=== PATIENT | female | born 1970 | race Caucasian/White ===

== ENCOUNTER 2019-06-13 07:14 | Outpatient (CLI) | payer OTHER, SELFPAY ==
--- NOTE | ~2019-06-13 | NM_ITS ---
EXAM: NM gastric emptying study DATE: 06/13/2019 12:37 INDICATION: Nausea and vomiting. TECHNIQUE: A gastric emptying study was performed using the methodology of Kaylee CANCHOLA, et al. J Nucl Med 2007; 48:568-572. The patient was given a meal consisting of 2 scrambled eggs labeled with 1 mCi Tc-99m sulfur colloid, 2 slices of toast, two packages of jam, and approximately 120 mL of water. Si multaneous anterior and posterior 1-min images of the abdomen were obtained with the patient supine a t multiple time points over a total period of 4 hours. The geometric mean of anterior and posterior v iews was determined, and the percentage retention was calculated for each time point. COMPARISON: None. FINDINGS: Gastric retention of the radiotracer-labeled meal was 73%, 47%, and 21% at the 1-hour, 2-h our, and 4-hour time points, respectively. With this technique, apparent rapid gastric emptying is nicholas ggested by <30% gastric retention at 1 hour. Delayed gastric emptying is defined by gastric retention of >90% at 1 hour, >60% retention at 2 hours, or >10% retention at 4 hours. IMPRESSION: 1. Delayed gastric emptying. Reviewed, dictated and finalized at location A. [employer]
== END 2019-06-13 07:15 | disposition home or self-care (01) ==
PROVIDERS: PCP Family Medicine Sports Medicine; Visit Provider Internal Medicine Gastroenterology
DX: R11.2 Nausea with vomiting, unspecified (principal); R10.13 Epigastric pain; K30 Functional dyspepsia
CPT/HCPCS: 78264; A9541

== ENCOUNTER 2019-06-25 00:29 | Day surgery (SDC) | payer OTHER, SELFPAY ==
[2019-06-18 14:43] VITALS: BMI 31.0
[2019-06-25 06:45] VITALS: BP 144/78; PULSE 77; RESP 20; TEMP 36.8; O2SAT 97; BMI 31.9
[2019-06-25] MEDS: LACTATED RINGERS 1,000 ML 150 ML IV CONT (06:54)
--- NOTE | 2019-06-25 07:05 | WPDANESEPPF ---
Anes - Initial Pre Proc Eval Procedure: Operation Date: 06/25/19 07:30 Proposed Procedures p Esophagogastroduodenoscopy - Vasu Andrews MD Date/Time: 06/25/19 07:05 Surgeon: Vasu Andrews MD Pre Op Diagnosis: GERD Patient Data Age: 49 Gender: F Height: 5 ft 2 in Weight: 79.2 kg Last Vital Signs Temp 36.8 C 06/25/19 06:45 Pulse 77 06/25/19 06:45 Resp 20 06/25/19 06:45 BP 144/78 H 06/25/19 06:45 Pulse Ox 97 06/25/19 06:45 Allergies Allergy/AdvReac Type Severity Reaction Status Date / Time Sulfa (Sulfonamide Allergy Rash Verified 06/25/19 06:44 Antibiotics) Home Medications Medication Instructions Recorded Confirmed Type albuterol sulfate 90 mcg/actuation 1 puff INHALATION Q4H PRN 06/05/19 06/18/19 History aerosol inhaler esomeprazole magnesium 20 mg 20 mg PO BID #60 cap 06/05/19 06/18/19 Rx capsule,delayed release fluticasone propionate 45 2 puff INHALATION BID 06/05/19 06/18/19 History mcg-salmeterol 21 mcg/actuation HFA inhaler Patient hx anesthesia problems: none Family hx anesthesia problems: none [facility] Past Medical History Medical History Salgado esophagus Colon cancer screening GERD (gastroesophageal reflux disease) Nausea & vomiting Social History Social History Smoking status: Former smoker Alcohol intake: never Anes - Eval Final PreProcedure Day of Procedure 06/25/19 07:05 Patient weight: obese Heart: regular rate and rhythm Lungs: clear to auscultation Airway: Mallampati scale class II Neurological: alert and oriented Last oral intake: >/= 8 hours ASA classification: II Emergent: no Anesthetic plan: proceed Anesthesia type and monitoring: general GIVS and standard monitoring Informed Consent: The patient's anesthetic plan and its attendant risks and benefits were discussed with the patient/family/POA. Questions were solicited and answers provided to the satisfaction of the patient/family/POA.
--- NOTE | 2019-06-25 07:33 | WPDHPUPDATE1 ---
History and Physical Update Update Date/Time: 06/25/19 07:33 History and Physical has been reviewed, including an updated exam of the patient. There are NO changes in the patient's condition. Risks, benefits, and alternatives have been discussed and questions answered. Patient agrees to proceed with procedure.
[2019-06-25 07:49] VITALS: BP 101/63; PULSE 85; RESP 19; O2SAT 100
[2019-06-25 07:59] VITALS: BP 92/75; PULSE 69; RESP 17; O2SAT 98
[2019-06-25 08:09] VITALS: BP 106/80; PULSE 70; RESP 21; O2SAT 99
== END 2019-06-25 08:15 | disposition home or self-care (01) ==
PROVIDERS: PCP Family Medicine Sports Medicine; Visit Provider Internal Medicine Gastroenterology
PROC: 0DJ08ZZ Inspection of Upper Intestinal Tract, Via Natural or Artificial Opening Endoscopic (ICD-10-PCS; CPT 43235; principal; 2019-06-25 07:30)
DX: K21.0 Gastro-esophageal reflux disease with esophagitis (principal); K29.50 Unspecified chronic gastritis without bleeding; Z87.19 Personal history of other diseases of the digestive system; Z87.891 Personal history of nicotine dependence; E66.9 Obesity, unspecified; Z68.31 Body mass index [BMI] 31.0-31.9, adult
CPT/HCPCS: 43239; 88305; 88313; 88342; J2704; J7120

== ENCOUNTER 2019-08-15 12:54 | Outpatient (NON) | payer OTHER, SELFPAY ==
[2019-08-16 13:31] LABS: SARS-CoV-2 RNA PCR Negative
== END 2019-08-15 12:55 ==
PROVIDERS: PCP Family Medicine Sports Medicine; Visit Provider Family Medicine Sports Medicine
DX: J45.901 Unspecified asthma with (acute) exacerbation (principal); R06.02 Shortness of breath; Z20.828 Contact with and (suspected) exposure to other viral communicable diseases
CPT/HCPCS: 87635; U0003

== ENCOUNTER 2019-09-24 08:29 | Outpatient (CLI) | payer OTHER, SELFPAY ==
[2019-09-26 21:23] LABS: H pylori Ag Stool Not Detected (Not Detected)
== END 2019-09-24 08:30 | disposition home or self-care (01) ==
PROVIDERS: PCP Family Medicine Sports Medicine; Visit Provider Internal Medicine Gastroenterology
DX: K29.70 Gastritis, unspecified, without bleeding (principal); B96.81 Helicobacter pylori [H. pylori] as the cause of diseases classified elsewhere
CPT/HCPCS: 87338

== ENCOUNTER 2021-10-29 00:26 | Day surgery (SDC) | payer OTHER, SELFPAY ==
[2021-10-14 14:43] VITALS: BMI 30.8
[2021-10-29 08:49] VITALS: BP 146/71; PULSE 59; RESP 17; TEMP 36.5; O2SAT 99; BMI 31.3
[2021-10-29] MEDS: LACTATED RINGERS 1,000 ML 150 ML IV CONT (08:58)
--- NOTE | 2021-10-29 08:58 | WPDANESEPPF ---
Anes - Initial Pre Proc Eval Procedure: Operation Date: 10/29/21 10:00 Proposed Procedures p Esophagogastroduodenoscopy - Vasu Andrews MD Date/Time: 10/29/21 08:58 Surgeon: Vasu Andrews MD Pre Op Diagnosis: leggett's esophagus Patient Data Age: 51 Gender: F Height: 1.57 m Weight: 77.7 kg Last Vital Signs Temp 97.7 F 10/29/21 08:49 Pulse 59 L 10/29/21 08:49 Resp 17 10/29/21 08:49 BP 146/71 H 10/29/21 08:49 Pulse Ox 99 10/29/21 08:49 O2 Del Method Room Air 10/29/21 08:49 Allergies Allergy/AdvReac Type Severity Reaction Status Date / Time erythromycin base Allergy Severe Difficulty Verified 10/29/21 08:48 Breathing Sulfa (Sulfonamide Allergy Rash Verified 10/29/21 08:48 Antibiotics) Home Medications Medication Instructions Recorded Confirmed Type albuterol sulfate 90 mcg/actuation 1 puff inhalation Q4H PRN 06/05/19 10/29/21 History aerosol inhaler (ProAir HFA) Shortness Of Breath fluticasone propionate 45 2 puff inhalation BID 06/05/19 10/29/21 History mcg-salmeterol 21 mcg/actuation HFA inhaler (Advair HFA) esomeprazole magnesium 20 mg 20 mg PO BID #180 caps 11/30/20 10/29/21 Rx capsule,delayed release Patient hx anesthesia problems: none Family hx anesthesia problems: none Results Review: All pre-operative results and documents have been reviewed as part of the pre-operative evaluation. [facility] Past Medical History Medical History (System 06/11/21 @ 11:55 by Myla Sifuentes) Leggett esophagus Colon cancer screening Gastroparesis GERD (gastroesophageal reflux disease) Helicobacter positive gastritis Hiatal hernia Nausea Nausea & vomiting URI (upper respiratory infection) Social History Social History (System 06/11/21 @ 11:55 by Myla Sifuentes) Smoking status: Current every day smoker Additional smoking assessment comments: Uses a Pinch hitter for the marijuana Alcohol intake: never Substance use: current Substance use type: marijuana Other substance usage details: Edibles Last use: 10/14/21 Living arrangements: alone Spiritual care concerns: No Anes - Eval Final PreProcedure Day of Procedure 10/29/21 08:58 Patient weight: obese Airway: Mallampati scale class II ASA classification: III Results Review: All pre-operative results and documents have been reviewed as part of the pre-operative evaluation. Informed Consent: The patient's anesthetic plan and its attendant risks and benefits were discussed with the patient/family/POA. Questions were solicited and answers provided to the satisfaction of the patient/family/POA.
--- NOTE | 2021-10-29 09:10 | PM.HPGS ---
History of Present Illness History of Present Illness Consent: Risks, benefits, and alternatives have been discussed and questions answered. Patient agrees to proceed with procedure. Chief complaint: leggett's esophagus Narrative: Suzi Aguirre is a 51 year old female with gastroparesis controlled after she got gastric stimulator. Last EGD showed short segment Leggett's esophagus doing well on omeprazole daily. Review of Systems Constitutional: Constitutional: Denies headache(s) and Denies weakness Eyes: Eyes: Denies blurry vision ENT: Reports Normal hearing present, Denies headache(s) and Denies neck pain Cardiovascular: Cardiovascular: Denies chest pain and Denies dyspnea Respiratory: Respiratory: Denies dyspnea Gastrointestinal: Gastrointestinal: Reports no additional gastrointestinal complaints Genitourinary: Genitourinary: Denies dysuria Musculoskeletal: Musculoskeletal: Denies neck pain Integumentary/Breasts: Skin/Breast: Denies dry skin Neurologic: Reports Normal hearing present, Denies headache(s) and Denies weakness Psychiatric: Psychiatric: Denies anxiety Endocrine: Endocrine: Denies change in body appearance Hematologic/Lymphatic: Hematologic/Lymphatic: Denies easy bleeding Allergic/Immunologic: Allergic/Immunologic: Denies urticaria PMFSH Past Medical History Medical History (System 06/11/21 @ 11:55 by Myla Sifuentes) Leggett esophagus Colon cancer screening Gastroparesis GERD (gastroesophageal reflux disease) Helicobacter positive gastritis Hiatal hernia Nausea Nausea & vomiting URI (upper respiratory infection) Social History Social History (System 06/11/21 @ 11:55 by Myla Sifuentes) Smoking status: Current every day smoker Additional smoking assessment comments: Uses a Pinch hitter for the marijuana Alcohol intake: never Substance use: current Substance use type: marijuana Other substance usage details: Edibles Last use: 10/14/21 Living arrangements: alone Spiritual care concerns: No Meds Home Medications and Allergies Home Medications Medication Instructions Recorded Confirmed Type albuterol sulfate 90 mcg/actuation 1 puff inhalation Q4H PRN 06/05/19 10/29/21 History aerosol inhaler (ProAir HFA) Shortness Of Breath fluticasone propionate 45 2 puff inhalation BID 06/05/19 10/29/21 History mcg-salmeterol 21 mcg/actuation HFA inhaler (Advair HFA) esomeprazole magnesium 20 mg 20 mg PO BID #180 caps 11/30/20 10/29/21 Rx capsule,delayed release Allergies Allergy/AdvReac Type Severity Reaction Status Date / Time erythromycin base Allergy Severe Difficulty Verified 10/29/21 08:48 Breathing Sulfa (Sulfonamide Allergy Rash Verified 10/29/21 08:48 Antibiotics) Vital Signs Vital Signs - 24 hr 10/29/21 08:49 Temperature 97.7 F Pulse Rate 59 L Respiratory Rate 17 Blood Pressure 146/71 H Pulse Oximetry 99 Oxygen Delivery Room Air Exam Const: General: comfortable and no acute distress HENMT: General nose exam: Normal nares present Eyes: General: appearance normal, both eyes and all related structures Neck: Neck: no JVD Resp: Auscultation: clear to auscultation bilaterally Cardio: Rate: regular rate Rhythm: regular rhythm GI: Inspection: non-distended GI Palp: Yes Soft to palpation Skin: General skin exam: normal color Neuro: General: gait normal Speech: normal speech Extrem: General: normal to inspection Psych: Mental Status: mental status grossly normal Assessment and Plan Assessment and plan (1) Leggett esophagus: Qualifiers: Leggett's esophagus type: without dysplasia Qualified Code(s): K22.70 - Leggett's esophagus without dysplasia Code(s): K22.70 - Leggett's esophagus without dysplasia Status: Acute Assessment and Plan: egd with bx doing well on ppi dailyl (2) Gastroparesis: Code(s): K31.84 - Gastroparesis Status: Acute
[2021-10-29 09:27] VITALS: BP 95/50; PULSE 76; RESP 23; O2SAT 97
[2021-10-29 09:37] VITALS: BP 95/55; PULSE 65; RESP 18; O2SAT 96
[2021-10-29 09:47] VITALS: BP 117/68; PULSE 62; RESP 14; O2SAT 99
== END 2021-10-29 09:52 | disposition home or self-care (01) ==
PROVIDERS: PCP Family Medicine Sports Medicine; Visit Provider Internal Medicine Gastroenterology
PROC: 0DJ08ZZ Inspection of Upper Intestinal Tract, Via Natural or Artificial Opening Endoscopic (ICD-10-PCS; CPT 43235; principal; 2021-10-29 10:00)
DX: K21.00 Gastro-esophageal reflux disease with esophagitis, without bleeding (principal); K22.70 Barrett's esophagus without dysplasia; K31.84 Gastroparesis; R11.2 Nausea with vomiting, unspecified; Z79.51 Long term (current) use of inhaled steroids; F17.210 Nicotine dependence, cigarettes, uncomplicated; F12.90 Cannabis use, unspecified, uncomplicated
CPT/HCPCS: 43239; 88305; J2001; J2704; J7120

== ENCOUNTER 2025-02-21 00:23 | Day surgery (SDC) | payer OTHER, SELFPAY ==
[2025-02-12 12:01] VITALS: BMI 30.2
--- OUTSIDE RECORDS SUMMARY | 2025-02-21 00:26 | XMS_ITS | Clinical Summary ---
Author Organization [facility] Address [address] [address] Phone Care Team Providers Care Insole Lip Turner Name Role Phone Bartolo Hillman MD Primary Care Provider [phone] Social History Tobacco Use Types Packs/Day Years Used Date Smoking Tobacco: Never Assessed Comments Unknown Sex and Gender Information Value Date Recorded Sex Assigned at Not on file Legal Sex Female 2:49 PM [employer] Gender Identity Not on file Sexual Orientation Not on file Plan of Treatment Health Maintenance Due Date Last Done Comments Hepatitis C Virus (HCV) Screening 1969 TdaP Immunization 1969 Hepatitis B Immunization (1 of 3 - 19+ 3-dose series) 1988 Pap Smear 1990 Cervical Cancer Screening (CCS) 1999 HPV/Cotest 1999 Cologuard 2014 Colonoscopy 2014 Colorectal Cancer Screening 2014 Immunochemical Fecal Occult Blood 2014 Pneumococcal Immunization (5 0+ years) (1 of 1 - PCV) 2019 Zoster Immunization (1 of 2) 2019 Influenza Immunization (#1) 2024 SARS-COV-2 Immunization ( - 2023- season) 2024 Respiratory Syncytial Virus (RSV) Immunization (Adult) (1 - 1-dose 75+ series) 2044 Human Papillomavirus (HPV) Immunization Aged Out No longer eligible b ased on patient's age to complete this topic Meningococcal Immunization (ACWY) Aged Out No longer eligible based on patient's age to complete this topic Rotavirus Immunization Aged Out No lo nger eligible based on patient's age to complete this topic Care Teams Insole Lip Turner Relationship Specialty Start Date End Date Bartolo Hillman MD [facility] - General Sports Medicine 05/22/19
--- OUTSIDE RECORDS SUMMARY | 2025-02-21 00:26 | XMS_ITS | Clinical Summary ---
Author Organization [facility] Address [facility] [place] [address] Care Team Providers Care Forest Examiner Name Role Phone Unavailable Primary Care Provider Unavailabl e Social History Tobacco Use Types Packs/Day Years Used Date Smoking Tobacco: Never Assessed Comments Unknown Sex and Gender Information Value Date Recorded Sex Assigned at Not on file Legal Sex Female 7:41 PM CDT Gender Identity Not on file Sexual Orientation Not on file Plan of Treatment Health Maintenance Due Date Last Done Comments Cervical Cancer Screening Pa p Smear (Age 30 to 64) Every 3 Years 1969 Colorectal Cancer Screening Colonoscopy (10 Years) 1969 Annual Physical 1972 Hepatitis C 1987 DTaP, Tdap and Td Vaccines ( 1 - Tdap) 1988 Hepatitis B Vaccines (1 of 3 - 19+ 3-dose series) 1988 Cervical Cancer Screening Pa p with HPV Testing (Age 30 to 64) Every 5 Years 1999 Cervical Cancer Screening with HPV 1999 Mammogram Screening 2009 Pneumococcal Vaccine: 50+ Ye ars (1 of 1 - PCV) 2019 Zoster Vaccines (1 of 2) 2019 COVID-19 Vaccine (2023-2 5 season) 2024 Influenza Adult (#1) 2025 Hepatitis A Vaccines Aged Out No long er eligible based on patient's age to complete this topic Meningococcal B Vaccine Aged Out No l onger eligible based on patient's age to complete this topic Meningococcal Vaccine Aged Out No blanca kamar eligible based on patient's age to complete this topic RSV Immunizations Under 20 Months Aged Out No longer eligible based on patient's age to complete this topic
--- OUTSIDE RECORDS SUMMARY | 2025-02-21 00:27 | XMS_ITS | Clinical Summary ---
Author Organization [facility] Address [address] [place] [id number] Care Team Providers Care Lock Up Worker Name Role Phone Mike Chaudhary MD Primary Care Provider [phone] Allergies Active Allergy Reactions Criticality Noted Date Comments Erythromycin Unknown 12/29/2021 Erythromycin Lactobionate Unknown,Other (See comments) Low 11/29/2022 Sulfa (Sulfonamide Antibiotics) Unknown,Other (See comments) Low 12/29/2021 Sulfamethoxazole-Trimet hoprim Other (See comments) Low 09/13/2016 Restless leg syndrome Medications PROAIR HFA 90 mcg/actuation inhalerIndicat ions:Acute Asthma Attack Inhale 2 puffs every 4 (four) hours as needed 8 Active ferrous sulfate 325 mg (65 mg of elemental iron) tabletIndicati ons:Iron Deficiency Anemia Take 1 tablet (325 mg total) by mouth 3 (three) times a week Active fluticasone propion-salmet telma (ADVAIR DISKUS) 100-50 mcg/dose diskus inhalerIndicat ions:Maintenan ce Therapy for Asthma Inhale 1 puff 2 (two) times a day Rinse mouth with water after use. Do not swallow. Active esomeprazole DR (NexIUM) 20 mg capsuleIndicat ions:Treatment of Non-Bleeding Gastric Disorder Take 1 capsule (20 mg total) by mouth daily before breakfast 0 Active cholecalcifero l (VITAMIN D-3) 25 mcg (1,000 unit) tabletIndicati ons:Vitamin D Deficiency Take 1 tablet (1,000 Units total) by mouth 3 (three) times a week Active HYDROcodone-ac etaminophen (NORCO) 5-325 mg per tabletIndicati ons:Pain Take 1 tablet by mouth every 6 (six) hours as needed for pain (Severe pain) 12 tablet 0 Active docusate sodium (COLACE) 100 mg capsuleIndicat ions:constipat ion Take 1 capsule (100 mg total) by mouth 2 (two) times a day with a glass of water 30 capsule 1 0 Active Additional Information Patient not taking.Reported on 03/27/2024 triamcinolone (KENALOG) 0.1 % ointment triamcinolone acetonide 0.1 % topical ointment Active clobetasoL (TEMOVATE) 0.05 % gel APPLY TWICE DAILY PRECISELY TO PINK OR RED AREAS ON THE TRUNK OR EXTREMITIES (AVOID NORMAL SKIN) 1 Active fluticasone furoate-vilant Telma (Breo Ellipta) 200-25 mcg/dose diskus inhaler Breo Ellipta 200 mcg-25 mcg/dose powder for inhalation Active acetaminophen (TylenoL) 325 mg tablet 650 mg 1 Active aspirin 81 mg chewable tablet 1 tablet (81 mg total) 1 Active vitamin H05-jcznb acid (Foltrate) 0.5-1 mg tablet 1 tablet(s), Oral, daily, 30 tablet(s), Tablet(s), 0 1 Active montelukast (SINGULAIR) 10 mg tablet 10 mg 1 Active estradioL (ESTRACE) 0.01 % (0.1 mg/gram) vaginal cream USE TOPICALLY TO AFFECTED AREAS NIGHTLY Active FLUoxetine (PROzac) 20 mg capsule TAKE 1 CAPSULE BY MOUTH ONCE DAILY WITH MEALS FOR 90 DAYS Active nystatin-triam cinolone ointment APPLY TO AFFECTED AREA TWICE DAILY FOR 4 WEEKS, THEN ONCE A DAY FOR 4 WEEKS, THEN 3 TIMES DAILY FOR 4 WEEKS Active fluconazole (DIFLUCAN) 200 mg tablet TAKE 1 TABLET BY MOUTH EVERY OTHER DAY FOR THREE DOSES Active metroNIDAZOLE (FLAGYL) 500 mg tablet TAKE 1 TABLET BY MOUTH TWICE DAILY WITH MEALS FOR 7 DAYS Active valACYclovir (VALTREX) 1 gram tablet TAKE 1 TABLET BY MOUTH EVERY 12 HOURS DIRECTED FOR 10 DAYS Active Active Problems Problem Noted Date Diagnosed Date Gastroparesis 02/28/2020 Overview (02/28/2020): Added automatically from request for surgery [id number] Nausea and vomiting 02/25/2019 Assessment & Plan (02/25/2019 3:28 PM CDT): 2 yrs of perhaps monthly episode of early satiety and then bloating and then vomiting and then resolution of sx. No inciting/relieving factors and no changes in bms or any abd pain. weitght gain. No eval. No systemic sx/signs, Encounter for screening colonoscopy 02/25/2019 Overview (02/25/2019): Added automatically from request for surgery [id number] Moderate persistent asthma with exacerbation 12/2017 Assessment & Plan (02/06/2018 3:50 PM CDT): Asthma is worsening. The patient is experiencing frequent daytime asthma symptoms. She is experiencing monthly nighttime asthma symptoms. Asthma information handout given. Asthma exacerbations are best prevented by treatment with inhaled corticosteroids (ICS) and leukotriene-receptor antagonists, in conjunction with treatment of modifiable risk factors such as avoidance of known asthma triggers (e.g., allergens and cigarette smoking), treatment of comorbidities such as obesity and anxiety, and prompt treatment of bacterial respiratory infections. Add-on medical therapy (most commonly with a long-acting bronchodilator) not only improves asthma control but has been shown to reduce asthma exacerbations. Annual vaccination against seasonal influenza and H1N1 is advisable for all asthmatics. Weight reduction may improve asthma outcomes in obese patients. For adults who have persistent asthma, but who have suboptimal control of their asthma despite daily use of ICS, the addition of anti-leukotrienes can help to reduce moderate and severe asthma exacerbations and improve lung function and asthma control compared with the same dose of ICS alone. (Singulair) Avoid Triggers Flu Shot Pneumonia Vaccine Allergy medication Surgical History Surgery Date Site/Laterality Comments BREAST BIOPSY Left BREAST LUMPECTOMY Left benign COLONOSCOPY 03/26/2019 TUBAL LIGATION FOOT SURGERY Bilateral neuropathy surgery and bunionectomy both feet UPPER GASTROINTESTINAL ENDOSCOPY 03/26/2019 GASTRIC STIMULATOR IMPLANT SURGERY Medical History Medical History Date Comments Asthma Sleep apnea 1 of 2 tests con firmed sleep apnea GERD (gastroesophageal reflux disease) Family History Medical History Relation Name Comments Anesthesia problems Neg Hx Breast cancer Neg Hx Endometrial cancer Neg Hx Ovarian cancer Neg Hx Thyroid cancer Neg Hx Social History Tobacco Use Types Packs/Day Years Used Date Smoking Tobacco: Former Cigarettes Q uit: 2006 Smokeless Tobacco: Never Tobacco Cessation:Counseling Given: Not Answered Alcohol Use Standard Drinks/Week Comments Yes 0 (1 standard drink = 0.6 oz pur e alcohol) once a year PHQ-2 Answer Date Recorded PHQ-2 Score 0 02/25/2019 Personal Safety Answer Date Recorded Have you ever been in or are you currently in a harmful physical or emotional relationship or is someone making you feel afraid or unsafe? Denies 04/09/2024 Comments No Sex and Gender Information Value Date Recorded Sex Assigned at Not on file Legal Sex Female 8:49 PM HEALTH PROGRAM DIRECTOR Gender Identity Not on file Sexual Orientation Not on file Obstetrics History Para Term AB IAB SAB Ectopic Multiple Livin g Live Births 1 1 1 Date Outcome GA Total Labor Labor/2nd/3rd Weight Sex Type Anes PTL Sofy A1 A5 Name Clin Term Last Filed Vital Signs Vital Sign Reading Time Taken Comments Blood Pressure 175/77 04/09/2024 4:06 PM HEALTH PROGRAM DIRECTOR Pulse 102 04/09/2024 4:06 PM HEALTH PROGRAM DIRECTOR Temperature 36.7 C (98 F) 04/09/2024 4:06 PM HEALTH PROGRAM DIRECTOR Respiratory Rate 18 04/09/2024 4:06 PM HEALTH PROGRAM DIRECTOR Oxygen Saturation 99% 04/09/2024 4:06 PM HEALTH PROGRAM DIRECTOR Inhaled Oxygen Concentration - - Weight 79.4 kg (175 lb 0.7 oz) 11/09/2024 11:35 AM CDT Height 157.5 cm (5' 2) 11/09/2024 11:35 AM CDT Body Mass Index 32.02 11/09/2024 11:35 AM CDT Plan of Treatment Health Maintenance Due Date Last Done Comments Cervical Cancer Screening 1970 Hepatitis C Screening 1970 DTaP/Tdap/Td Vaccine (1 - Tdap) 1980 Hepatitis B Screening 1987 Regular Well Visit/Exam 18-64 1987 Pneumococcal vaccine <65 (2 of 2 - PCV) 02/20/2019 02/20/2018 Zoster Vaccine (1 of 2) 2019 Depression Screening 02/26/2020 02/25/2019, 02/26/20 19 Influenza Vaccine (#1) 2024 8, 01/27/2017, 02/09/2016 Breast Cancer Screening-Mammogram 11/09/2025 11/09/2024, 11/21/2023, 11/17/2022, Additional history exists Colon Cancer Screening-Colonoscopy 03/26/2029 03/26/2019 Colon Cancer Screening-CT Colonography Discontinued 03/26/2019 Colon Cancer Screening-DNA Stool Discontinued 03/26/20 19 Colon Cancer Screening-FIT Discontinued 03/26/2019 Colon Cancer Screening-Sigmoidoscopy Discontinued 03/26/2019 Medical Devices Implanted Type Area Acoustics Teacher Device Identifier Shelf Expiration Date Model / Serial / Lot Med[employer]onic Inc 82030 Neurostimulator Implantable 2.4inx2.2in Enterra Ii Gastric - [id number] - [id number] Implanted:Qty: 1 on 04/06/2020 by Erasto Canales MD PhD at [facility] Neurostimulator [employer] Inc 06/14/2021 [id number] / [id number] / NA Medtronic Neuro 4351-35 Enterra 35cm Lead Unipolar Kit Stimulator - [id number] - [id number] Implanted:Qty: 1 on 04/06/2020 by Erasto Canales MD PhD at [facility] Neurostimulator N/A: Stomach [employer] Inc 11/26/2021 4351-35 / [id number] / NA Medtronic Neuro 4351-35 Enterra 35cm Lead Unipolar Kit Stimulator - [id number] - [id number] Implanted:Qty: 1 on 04/06/2020 by Erasto Canales MD PhD at [facility] Neurostimulator N/A: Stomach [employer] 08/01/2021 4351-35 / [id number] / NA Procedures Procedure Name Priority Date/Time Associated Diagnosis Comments SCREENING MAMMOGRAM BILATERAL W JUAN ANTONIO Schedule Routine, Read Routine (OP Routine) 11/09/2024 11:44 AM CDT Screening mammogram, encounter for COLONOSCOPY 03/26/2019 9:22 AM HEALTH PROGRAM DIRECTOR from Last 3 Months or Most Recently Relevant to Health Maintenance Results * Screening Mammogram Bilateral W Juan Antonio (11/09/2024 11:44 AM CDT) Anatomical Region Laterality Modality Breast Bilateral Mammography Impressions 11/11/2024 8:49 AM CDT Bilateral No evidence of malignancy in either breast. OVERALL BI-RADS FINAL ASSESSMENT: 1 - Negative RECOMMENDATION: Recommend bilateral annual screening mammography. Narrative 11/11/2024 8:49 AM CDT EXAMINATION: Screening Mammogram Bilateral W Juan Antonio: 11/09/2024 COMPARISON: 11/01/2023 and priors. TECHNIQUE: Mammography was performed with 2D and digital breast tomosynthesis (DBT) images. CAD was utilized. BREAST PARENCHYMAL COMPOSITION: There are scattered areas of fibroglandular density. FINDINGS: Bilateral There is no suspicious mass, calcification, or architectural distortion in either breast. us Self Screening Mammogram IMG MAMMO PROCEDURES Fi nal Result * COLONOSCOPY (03/26/2019 9:22 AM HEALTH PROGRAM DIRECTOR) Anatomical Region Laterality Modality Other Narrative Procedure Note Bartolo Troncoso MD - 03/26/2019 9:22 AM CST [facility] Patient Name: Suzi Aguirre Procedure Date: 03/26/2019 9:22 AM Date of : 1970 Admit Type: Outpatient Age: 49 Gender: Female Attending MD: Bartloo Troncoso M.D. Room: [facility]COPY ROOM 2 Note Status: Finalized Patient Profile: Refer to note in patient chart for documentation of history and physical. Procedure: Colonoscopy Indications: Screening for colorectal malignant neoplasm, This is the patient's first colonoscopy Referring MD: Bartolo Troncoso M.D., Mike Chaudhary MD Providers: Bartolo Troncoso M.D. Impression: - Hemorrhoids found on perianal exam. - The entire examined colon is normal. - No specimens collected. Recommendation: - Discharge patient to home. - Resume previous diet. - Continue present medications. - Repeat colonoscopy in 10 years for screeningpurposes. - Return to primary care physician as previously scheduled. Medicines: Propofol per Anesthesia Complications: No immediate complications. Estimated Blood Loss: Estimated blood loss: none. Procedure: Pre-Anesthesia Assessment: - This assessment was completed [Time of Assessment] prior to the administration of sedation. The benefits, risks and alternatives of theprocedure and sedation were discussed and informed consent was obtained. All questions were answered. Please referto the signed informed consent document in the medical record. The scope was passed under direct vision.The Colonoscope [id number] was introducedthrough the anus and advanced to the the cecum, identifiedby appendiceal orifice and ileocecal valve. The bowel preparation used was Miralax. The bowel preparation used was bisacodyl tablets. Bowel prep wasadministered using a single dose. The quality of the bowel preparation was excellent. The colonoscopy was performed without difficulty. The patient toleratedthe procedure well. The quality of the bowel preparation was excellent. Findings: Hemorrhoids were found on perianal exam. The colon (entire examined portion) appeared normal. Electronically signed by Bartolo Troncoso M.D. Bartolo Troncoso M.D. 03/26/2019 10:15:53 AM Number of Addenda: 0 Note Initiated On: 03/26/2019 9:22 AM Procedure Code(s): --- Professional --- G0121, Colorectal cancer screening; colonoscopy on individual not meeting criteria for high risk Diagnosis Code(s): --- Professional --- K64.9, Unspecified hemorrhoids Z12.11, Encounter for screening for malignant neoplasm of colon CPT copyright 2017 [employer]. All rights reserved. The codes documented in this report are preliminary and upon restoration ecologist reviewmay be revised to meet current compliance requirements. Recognized by the [employer] for promoting quality in endoscopy Bartolo Troncoso MD ENDOSCOPY PROCEDURES Final Re sult from Last 3 Months or Most Recently Relevant to Health Maintenance Insurance [facility] Address: [place] [address] [facility] [employer] Address: [address] [address] [place] [address] [facility] [employer] Address: [address] [place] [address] Advance Directives For more information, please contact: [phone] * Full Code (Latest Code Status on File) Date Activated Date Inactivated Comments 03/26/2019 9:08 AM 03/26/2019 2:57 PM * Full Code Date Activated Date Inactivated Comments 03/26/2019 9:08 AM 03/26/2019 9:08 AM Care Teams Lock Up Worker Relationship Specialty Start Date End Date Mike Chaudhary MD [address] [place] [address] PCP - General Family Medicine 08/16/24
--- OUTSIDE RECORDS SUMMARY | 2025-02-21 00:27 | XMS_ITS | Encounter Summary ---
Author Organization [facility] Address [address] [facility] [place] [address] Care Team Providers Care Home School Coordinator Name Role Phone Mike Chaudhary MD Primary Care Provider [phone] Reason for Visit * Reason Onset Date Comments Question 01/22/2024 Encounter Details Date Type Department Care Team (Late st Contact Info) Description 01/22/2024 Telephone [facility] [address] [place] [address] Susan Lazar, BELL CLEANER-BAGGING MACHINE OPERATOR [address] [address] Question Social History Tobacco Use Types Packs/Day Years Used Date Smoking Tobacco: Former Cigarettes Smokeless Tobacco: Never Alcohol Use Standard Drinks/Week Comments Not Currently 0 (1 standard drink = 0.6 oz pur e alcohol) Comments No Sex and Gender Information Value Date Recorded Sex Assigned at Not on file Legal Sex Female 12:41 PM CDT Gender Identity Not on file Sexual Orientation Not on file documented as of this encounter Miscellaneous Notes * Telephone Encounter - Lei Ellis RN - 01/22/2024 3:45 PM CDT Per Media tab, this is the office who referred patient. Confirmed fax # is the same. Faxing last office note. * Telephone Encounter - Alis Trevino - 01/22/2024 3:01 PM CDT Erica calling from the [facility] asking for the pt office notes from her last visit..(01-08-24).also that she is in a lot of pain and is wanting to start hormonal therapy Please contact FX# [phone] documented in this encounter Plan of Treatment Not on file documented as of this encounter Visit Diagnoses Not on filedocumented in this encounter Care Teams Home School Coordinator Relationship Specialty Start Date End Date Mike Chaudhary MD [address] [place] [id number] PCP - General Family Medicine 01/02/24 documented as of this encounter
--- OUTSIDE RECORDS SUMMARY | 2025-02-21 00:27 | XMS_ITS | Clinical Summary ---
Author Organization [facility] Address [address] [place] [address] Phone Care Team Providers Care Live Truck Technician Name Role Phone Unavailable Primary Care Provider Unavailabl e Social History Tobacco Use Types Packs/Day Years Used Date Smoking Tobacco: Never Assessed Comments Unknown Sex and Gender Information Value Date Recorded Sex Assigned at Not on file Legal Sex Female 3:18 PM DOPE SPRAYER Gender Identity Not on file Sexual Orientation Not on file Plan of Treatment Health Maintenance Due Date Last Done Comments DTAP/TDAP/TD VACCINES (1 - Tdap) 1988 HEPATITIS B VACCINES (1 of 3 - 19+ 3-dose series) 06/1987 HPV/Cotest (21-29) 1990 CERVICAL CANCER SCREENING 1999 HPV/Cotest (30-65) 1999 PAP SMEAR 1999 BREAST CANCER SCREENING 2009 COLORECTAL SCREENING 2014 Colorectal Cancer Screening 2014 FIT-DNA Q 3 years 2014 FIT/FOBT Q 1 year 2014 Flex Sig/CT Colonography Q 5 years 2014 ZOSTER VACCINE (1 of 2) 2019 INFLUENZA VACCINE (#1) 2024
--- OUTSIDE RECORDS SUMMARY | 2025-02-21 00:27 | XMS_ITS | Data Portability ---
Author Organization [facility], [facility] Address [address] [place] [address] Care Team Providers Care Assembler Movement Name Role Phone KURTIS GARZA Primary Care Provider Assessment Encounter Date Assessment Date Assessment LastModified by Organization Details LastModified Time 12/01/2022 12/01/2022 Annual gynecological exam performed. Patient will come back in a year unless there are new symptoms. [email or web address] Not available 12/01/2022 15:32:22 Plan of Treatment Reminders Order Date Submit Date Provider Last Modified By Organization Details Last Modified Time Details Appointments None recorded. Lab hsv-1 igg Ab, serum 2023 024 [facility] (Lab), [address] [place], [address], 4 11:58:16 hsv-2 igg Ab, serum 2023 024 [facility] (Lab), [address] [place], [address], 4 11:58:17 Referral gynecologis t referral 2023 024 SETH Gregorio MD, [address], [address], 13:50:14 Procedures None recorded. Surgeries None recorded. Imaging None recorded. Medication Orders Valtrex 1 gram tablet 2023 024 [facility], [address] [place], [address], 4 17:09:13 Diflucan 200 mg tablet 2023 024 [facility], [address] [place] [address], [address], 4 16:44:35 estradiol 0.01% (0.1 mg/gram) vaginal cream [address] [facility] [address] [facility], [address] [place] [address], [address], 4 16:52:34 fluoxetine 20 mg capsule [address] [facility] [address] [facility], [address] [place] [address], [address], 4 16:52:38 estradiol 0.01% (0.1 mg/gram) vaginal cream [address] [facility] [address] [facility], [address] [place] [address], [address], 4 16:52:34 Patient TargetsNo targets recorded. Patient InstructionsNo instructions recorded. 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 Referral for Ge nital lichen sclerosus Referring Physician: Ruddy Renteria, TWO WAY RADIO INSTALLER, Encounter Date: 12/26/2023 Results Created Date Observation Date Name Description Value Unit Range Abnormal Flag Note LastModifiedBy Organization Detail LastModifiedTime 09/13/19 23 09/12/2022 SURGI DIXIE PATHO LOGY surgical pathology SEE RESULT S BELOW CASE REPOR T: Surgi dixie Patho logy Repor t Case: [id number] Autho checo sherman Provi skinny: Maksim Mauricio Colle cted: 09/12 0851 PUBLIC RELATIONS CONSULTANT Order ing Locat ion: [place] Patho logy Recei renetta: 09/13 0148 Patho logis t: Linda Oliva MD Speci men: Vulva , vulva bx/ vulva bx FINAL DIAGN OSIS: Vulva , biops y: -Lich en scler osus. Elect aby thang pham d by Linda Oliva MD on 2022 at 1:44 PM ----- ----- ----- ----- ----- ----- ----- ----- ----- ----- ----- ----- ----- ----- ----- ----- ----- ---- CLINI DIXIE INFOR MATIO N: Acute vulvi tis MICRO SCOPI C DESCR IPTIO N: A micro scopi c exami natio n was perfo rmed. GROSS DESCR IPTIO N: A. Vulva . The speci men is label ed with the patie nt's name, demog raphi cs and vulv a BX. Recei renetta in forma vani are 2 fragm ents of amador tissu e measu ring 0.3 cm each. The speci men is submi tted all in casse tte A1. Gross ed by Blossom Reyes on Not Available [facility] (Lab) [address] [facility], [place], [address], 09/13/2022 14:46:48 12/02/19 23 12/01/2022 IMAGE GUIDE D PAP AND HPV REGAR DLESS image guided Pap, HPV regardless of Pap result SEE RESULT S BELOW CASE REPOR T: Cytol ogy Gynec ologi dixie Repor t Case: [id number] Autho checo sherman Provi skinny: Maksim Mauricio Colle cted: 12/01 1512 PUBLIC RELATIONS CONSULTANT Order ing Locat ion: [place] Patho logy Recei renetta: 12/02 0148 First Scree n: Ryan Napoles , [place] Rescr een: Lety r, Thelma , [place] Speci men: Scree jocelyn Pap - Image d, Cervi x STATE MENT OF ADEQU ACY: Satis facto ry for evalu ation Trans forma tion zone compo nent absen t The absen ce of an endoc ervic al compo nent was confi rmed by an addit bossman orozco. FINAL DIAGN OSIS: Negat kiley for Intra epith elial Lesio n or Rustychristos fernando (NIL) . Elect jorge aerickson desir ankit d by Thelma Parks , [place] on 023 at 8:28 AM ----- ----- ----- ----- ----- ----- ----- ----- ----- ----- ----- ----- ----- ----- ----- ----- ----- ---- HPV RESUL TS: HPV mRNA E6/E7 : No HPV mRNA Detec dari NOTE: This high risk HPV mRNA assay detec ts fourt een high- risk HPV types (16, 18, 31, 33, 35, 39, 45, 51, 52, 56, 58, 59, 66, 68) witho ut diffe renti ation . COMME NT: This speci men was revie wed by a Cytot echno logis t and/o r Patho logis t (as indic ated in this repor t) after evalu ation using the Thinp rep Imagi ng Syste m. CLINI DIXIE INFOR MATIO N: Menst rual Statu s: LMP (if appli cable ): Clini dixie Histo ry/Pr eviou s Pap: Type of Neopl hugo (if appli cable ): Signi fican t Clini dixie Findi ngs: Other Histo ry: Hormo andreina (if appli cable ): PAP EDUCA PEYTON L NOTE: The Pap Test is a scree jocelyn test with an inher ent false negat kiley rate. Liqui d-bas ed sampl ing may decre ase, but will not elimi valentina, false negat kiley resul ts. A negat kiley resul t does not precl ude the prese nce and/o r devel opmen t of disea se, since the prese nce of abnor mal cells in the sampl e depen ds on the locat ion of the lesio n and sampl ing techn ique. Buddy nued regul ar scree jocelyn is the best metho d of cance r preve ntion . If repor dari cytol ogic findi ng do not corre late with physi dixie and/o r histo rical findi ngs, furth er inves tigat ion is recom noe d, as clini adria hassan nted. Not Available [facility] (Lab) [address] [facility], [place], [address], 12/05/2022 09:31:28 09/13/19 24 09/13/2023 HERPE S SMPLE X VIRUS TYPE 1 SPECI FIC AB, IGG herpes simplex virus 1 IgG Positi ve negati ve abnormal Not Available [facility] (Lab) [address] [place], [address], 09/14/2023 11:58:16 09/13/19 24 09/13/2023 HERPE S SMPLE X VIRUS TYPE 1 SPECI FIC AB, IGG herpes simplex virus 1 IgG, quant 6.7 ai 0.0-0. 8 high Not Available [facility] (Lab) [address] [facility], [place], [address], 09/14/2023 11:58:16 09/13/19 24 09/13/2023 HERPE S SIMPL EX VIRUS TYPE 2 SPECI FIC AB, IGG herpes simplex virus 2 IgG Positi ve negati ve abnormal Not Available [facility] (Lab) [address] [facility], [place], [address], 09/14/2023 11:58:17 09/13/19 24 09/13/2023 HERPE S SIMPL EX VIRUS TYPE 2 SPECI FIC AB, IGG herpes simples virus 2 IgG, quant >8.0 ai 0.0-0. 8 high Not Available [facility] (Lab) [address] [place], [address], 09/14/2023 11:58:17 09/13/19 24 09/13/2023 VAGIN ITIS/ VAGIN OSIS, DNA PROBE shola sp. detection, direct probe Negati ve negati ve Not Available [facility] (Lab) [address] [facility], [place], [address], 09/20/2023 10:11:56 09/13/19 24 09/13/2023 VAGIN ITIS/ VAGIN OSIS, DNA PROBE gardnerella vag. detection, direct probe Positi ve negati ve abnormal Not Available [facility] (Lab) [address] [facility], [place], [address], 09/20/2023 10:11:56 09/13/19 24 09/13/2023 VAGIN ITIS/ VAGIN OSIS, DNA PROBE trichomonas vag. detection, direct probe Negati ve negati ve Not Available [facility] (Lab) [address] [facility], [place], [address], 09/20/2023 10:11:56 09/13/19 24 09/13/2023 CULTU RE: HSV/ VZV hsv culture/type Commen t Negat kiley No Herpe s simpl ex virus isola dari. Not Available [facility] (Lab) [address] [facility], [place], [address], 09/20/2023 10:11:57 09/13/19 24 09/13/2023 CULTU RE: HSV/ VZV viral culture, rapid,varice lla Commen t Negat kiley No Varic donny zoste r virus detec dari by rapid viral cultu re. Not Available [facility] (Lab) [address] [facility], [place], [address], 09/20/2023 10:11:57 Result Notes None recorded. Problems Name Problem SNOMED Code Status Onset Date Resolution Date Notes Provider Name and Address Organization Details Recorded Time Genital lichen sclerosus [id number] Active 2022 [facility] [address], [place], [address], [place] - [facility] 10:20:14 Problem Notes None recorded. Procedures Surgical History Date Name Laterality Status Provider Name and Address Organization Details Recorded Time 023 Date of Last Pap Smear completed Thao [facility] 09/13/2023 16:53:24 023 Date of Last Mammogram completed Thao [facility] 12/01/2022 15:33:07 023 Vulvar Biopsy completed Patricia Benitez [facility]- [address], [place], [address], [facility] 09/10/2022 11:29:05 023 biopsy of vulva completed Lolis Serrnao [facility] 09/10/2022 11:02:12 020 implantation of gastric neurostimulator into stomach completed Lolis Serrano [facility] 08/30/2022 18:17:01 016 procedure on foot completed Lolis Serrano [facility] 08/30/2022 18:15:54 015 Breast Surgery completed Lolisjulienne Serrano [facility] 08/30/2022 18:15:23 015 Breast Biopsy completed Lolisjulienne Serrano [facility] 08/30/2022 18:14:45 998 ligation of fallopian tube completed Lolisjulienne Serrano [facility] 08/30/2022 18:14:27 Imaging Results None recorded. Procedure Notes None recorded. Medical Equipment None Reported. Allergies Allergen ID Allergen Name Allergen Category Reaction Reaction Severity Criticality Documentation Date Start Date Code Code System Note Provider Name and Address Organization Details Recorded Time 62580 Substance with sulfonami de structure and antibacte rial mechanism of action (substanc e) medicatio n Not available Not available Not available 09/10/2022 60248 8003 SNOMED Lolis Serrano null, [facility] 3 11:00:44 62630 Erythroci n medicatio n Not available Not available Not available 09/10/2022 94119 3 RxNorm Lolis Serrano [facility], [facility] 3 11:00:54 Medications Name Sig Start Date Stop Date Status Note LastModified by Organization Details LastModified Time amoxicillin 500 mg capsule TAKE 2 CAPSULES BY MOUTH TWICE DAILY FOR 7 DAYS 08/27 completed Not Available Not Available Not Available fluticasone 250 mcg-salmete rol 50 mcg/dose blistr powdr for inhalation 12/25 completed Not Available Not Available Not Available benzonatate 200 mg capsule TAKE 1 CAPSULE BY MOUTH THREE TIMES DAILY 10/11 completed Not Available Not Available Not Available valacyclovi r 1 gram tablet TAKE 1 TABLET BY MOUTH EVERY 12 HOURS DIRECTED FOR 10 DAYS active Not Available Not Available No t Available fluconazole 200 mg tablet TAKE 1 TABLET BY MOUTH EVERY OTHER DAY FOR THREE DOSES 12/25 completed Not Available Not Available Not Available metronidazo le 500 mg tablet TAKE 1 TABLET BY MOUTH TWICE DAILY WITH MEALS FOR 7 DAYS 12/25 completed Not Available Not Available Not Available valacyclovi r 500 mg tablet TAKE 1 TABLET BY MOUTH ONCE DAILY FOR 90 DAYS active Not Available Not Available No t Available nystatin-tr iamcinolone 100,000 unit/gram-0 .1 % topical ointment APPLY TO AFFECTED AREA TWICE DAILY FOR 4 WEEKS, THEN ONCE A DAY FOR 4 WEEKS, THEN 3 TIMES DAILY FOR 4 WEEKS 12/01 completed Not Available Not Available Not Available Baby Aspirin 81 mg chewable tablet Chew 1 tablet every day by oral route. active Not Available Not Available No t Available clobetasol 0.05 % topical ointment APPLY A THIN LAYER TO THE AFFECTED AREA(S) BY TOPICAL ROUTE 1-2 TIMES PER DAY UNTIL AREA IS HEALED.TH EN 1-2 TIMES PER WEEK ONLY NEEDED 2023 active Not Available Not Available Not Avai lable estradiol 0.01% (0.1 mg/gram) vaginal cream Insert 1GM into vagina at HS 2-3x per week. 09/12 completed Not Available Not Available Not Available methylpredn isolone 4 mg tablets in a dose pack TAKE BY MOUTH DIRECTED ON INSIDE OF PACKAGE 09/12 completed Not Available Not Available Not Available albuterol sulfate HFA 90 mcg/actuati on aerosol inhaler active Not Available Not Available Not Available fluoxetine 20 mg capsule TAKE 1 CAPSULE BY MOUTH ONCE DAILY WITH MEALS FOR 90 DAYS 09/12 completed Not Available Not Available Not Available amoxicillin 875 mg-potcoltonu m clavulanate 125 mg tablet TAKE 1 TABLET BY MOUTH TWICE DAILY FOR 7 DAYS 09/12 completed Not Available Not Available Not Available esomeprazol e magnesium 20 mg capsule,del ayed release active Not Available Not Available Not Available vitamin K active Not Available Not Fior ilable Not Available folic acid active Not Available Not Av ailable Not Available iron active Not Available Not Availa ble Not Available Vitamin D active Not Available Not Fior ilable Not Available [place] 3 active Not Available Not Avail able Not Available Vitals Date Recorded Body height Body mass index (BMI) Body weight Systolic And Diastolic Provider Name and Address Organization Details Last Updated DateTime 09/10/2022 155.58 cm 32 kg/m2 39288.3 g 138/78 mm[Hg] Lolis Serrano [facility] 09/10/2022 11:00:27 Date Recorded Body height Body mass index (BMI) Body weight Systolic And Diastolic Provider Name and Address Organization Details Last Updated DateTime 09/13/2023 155.58 cm 32 kg/m2 67469.3 g 147/95 mm[Hg] Thao Snyder [facility] 09/13/2023 16:52:00 Date Recorded Systolic And Diastolic Provider Name and Address Organization Details Last Updated DateTime 10/11/2022 130/80 mm[Hg] Patricia Benitez, [facility]- [address], [place], [address], [facility] 10/11/2022 11:03:23 Date Recorded Body height Body mass index (BMI) Body weight Provider Name and Address Organization Details Last Updated DateTime 10/11/2022 155.58 cm 32.4 kg/m2 98708.48 g Thao Snyder [facility] 10/11/2022 10:43:16 Date Recorded Systolic And Diastolic Provider Name and Address Organization Details Last Updated DateTime 12/01/2022 122/85 mm[Hg] Patricia Benitez, [facility]- [address], [place], [address], [facility] 12/01/2022 15:50:13 Date Recorded Body height Body mass index (BMI) Body weight Provider Name and Address Organization Details Last Updated DateTime 12/01/2022 155.58 cm 32 kg/m2 56868.3 g Thao Claudio [facility] 12/01/2022 15:32:30 Date Recorded Body height Body mass index (BMI) Body weight Systolic And Diastolic Provider Name and Address Organization Details Last Updated DateTime 12/26/2023 155.58 cm 32.6 kg/m2 56914.07 g 154/84 mm[Hg] Saundra Dave [facility] 12/26/2023 16:41:19 Social History Question Answer Notes LastModified by Organizat ion Details LastModified Time Tobacco Smoking Status Never Smoker Lolis aden, [facility] 08/30/2022 18:13:52 Are You Blind Or Do You Have Difficulty Seeing? No [email or web address] Information n ot available 08/30/2022 What Is Your Level Of Caffeine Consumption? Occasional Information not available 08/30/2022 In The 14 Days Before Symptom Onset, Have You Had Close Contact With A Laboratory-confirm ed COVID-19 While That Case Was Ill? No [email or web address] Information n ot available 08/30/2022 In The 14 Days Before Symptom Onset, Have You Had Close Contact With A Person Who Is Under Investigation For COVID-19 While That Person Was Ill? No [email or web address] Information not available 08/30/2022 Have You Been To An Area Known To Be High Risk For COVID-19? No [email or web address] Information not available 08/30/2022 Are You Deaf Or Do You Have Serious Difficulty Hearing? No Information not available 08/30/2022 What Type Of Diet Are You Following? REGULAR [email or web address] Information n ot available 08/30/2022 Have You Ever Been Counseled For Unhealthy Alcohol Use? No [email or web address] Information not available 08/30/2022 Do You Use Your Seat Belt Or Car Seat Routinely? Yes [email or web address] Information not available 08/30/2022 Do You Have Smoke And Carbon Monoxide Detectors In Your Home? Yes [email or web address] Information not available 08/30/2022 Do You Use Sunscreen Routinely? Yes Information not available 08/30/2022 Has Tobacco Cessation Counseling Been Provided? No [email or web address] Information not available 08/30/2022 Do You Have Difficulty Walking Or Climbing Stairs? No [email or web address] Information not available 08/30/2022 Sex: Unknown Functional Status Question Answer Note LastModified by Organizat ion Details LastModified Time Do you use any illicit or recreational drugs? No [email or web address] Information not available 08/30/2022 Do you or have you ever used any other forms of tobacco or nicotine? No [email or web address] Information not available 08/30/2022 What is your level of alcohol consumption? Occasional [email or web address] Information not available 08/30/2022 Are you able to walk independently without assistance or assistive devices? YESWOREST [email or web address] Information not available 08/30/2022 Are you able to care for yourself independently? Yes [email or web address] Information not available 08/30/2022 Do you have difficulty dressing, bathing, grooming, or toileting? No Information not available 08/30/2022 What is your exercise level? Occasional [email or web address] Information not available 08/30/2022 Mental Status Question Answer Note LastModified by Organization D etails LastModified Time Do you feel stressed (tense, restless, nervous, or anxious, or unable to sleep at night)? [id number] [email or web address] Information not available 08/30/2022 Family History Relationship Description Onset Age of this Age Resolved Age Notes LastModified by Organization Details LastModified Time Sister Asthma [email or web address] Not available 08/30/2022 18:12:39 Sister Heart disease [email or web address] Not available 08/30 18:13:06 Sister Diabetes mellitus [email or web address] Not available 08/30 18:13:15 Mother Asthma [email or web address] Not available 08/30/2022 18:12:47 Mother Heart disease [email or web address] Not available 08/30 18:13:06 Mother Diabetes mellitus Not available 08/30 18:13:15 Medical History Condition Response Allergies (Food, seasonal, environmental ) Y Other N Drug/Latex Allergies/Reactions Y Breast Cancer N Blood Transfusion N Dermatologic Disorders N Lung Disease N Defects or Inherited Disease N Breast Problem Y Gestational Diabetes N Hematologic disorders N Anesthesia Complications N History of STI N Deep Vein Thrombosis N Polycystic ovary syndrome N Anxiety Disorder N Autoimmune disease N Arthritis N Polyps N Infertility N Acid Reflux (GERD) Y History of abnormal pap N Cancer N Varicosities N Stroke N Neurologic/Epilepsy N Endometriosis N High Cholesterol N Fibromyalgia N Headaches N Kidney Disease N Heart Problems N Thyroid Problems N Kidney or Bladder Problems N GI Problems Y Eating Disorder N Anemia N Art (IVF or FET) N Psychiatric Illness N Ovarian Cancer N Diabetes N Pulmonary (TB, Asthma) Y Hepatitis/Liver Disease N No Past Medical History N Eczema N Urinary Tract Infection N Abuse/Domestic Violence N Asthma Y Trauma/Violence N Depression/ depression N Heart Disease N Pre-Eclampsia N Hypertension N Osteoporosis N Thrombophilias N Gynecological History Statement/Question Response Abnormal Pap N Date of Last Mammogram 11/17/2022 Date of LMP 10/29/2021 STIs/STDs N HPV Vaccine N Current Control Method Menopause Date of Last Colonoscopy Sexually Active? N Menses Monthly N Date of Last Pap Smear 12/01/2022 Sexual Problems? N LMP Approximate Obstetrics History GPAL:G 1 P 1 0 0 1 Type Value Full Term 1 Living 1 Total 1 Past Encounters Encounter ID Performer Location Encounter Start Date Encounter Closed Date Diagnosis/Indication Diagnosis SNOMED-CT Code Diagnosis ICD10 Code Diagnosis IMO Codes Diagnosis Note [id number] Patricia Benitez [facility] [address] [address] 08/27/2022 10:52:13 08/28/2022 22:16:00 Pruritus of vulva 22692127 L29.2 Today we discussed likely LS & need for vulvar bx.She will schedule for Bx and use mycolog ointment twice a day until she returns in the next 1-2wks for this procedure. In addition, she will require an updated WWE visit with updated mammo/pap/ ??colonosc opy. H/O's were given on LS for additional home review. Time spent in visit is a total of 30 mins with at least 50% of visit consisting of counseling and review of plan of care. [id number] Patricia Benitez [facility] [address],[place] [address] 09/10/2022 10:38:03 09/12/2022 09:48:58 Pruritus of vulva 30444712 L29.2 Vulvar bx performed for suspicion of lichen sclerosis. She will continue with current mycolog & crisco regimen.We will reach out with results & give additional instructio n at that time.Will schedule a 3mos WWE which we will do a vulva check at that time.See procedure notes.Bx site = lower inner labia majora [id number] Patricia Benitez [facility] [address],[facility] [place] [address] 10/11/2022 10:36:18 10/12/2022 10:17:36 Genital lichen sclerosus [id number] L90.0 Continue current regimen with olive oil and prn use of mycolog.We agreed on a VERY short term topical use of estrogen cream to help speed the healing of two areas of the vulva that are extremely atrophic to the point of causing painful tears in the skin. This will only be for one month & our hope is that we can then just use olive oil and VCG's moving forward since continuing use of any estrogen product cud increase her risks of breast cancers. If we are unable to manage these issues to meet our goals she will be referred to vulvar clinic at [facility]. Time spent in visit is a total of 20 mins with at least 50% of visit consisting of counseling and review of plan of care. Menopausal symptom 64313 002 N95.1 Today we discussed non-HRT for menopausal night sweats.Jacob mack, SSRI, Newer medication called veozah.She has chosen to trial SSRI since feels her moods are a bit irritable as well. Counseled on medication R/B's, Most common side effects, & use. All questions were answered to patient satisfacti on. [id number] Patricia Benitez , [facility] [address],[place] [address] 12/01/2022 15:03:40 12/01/2022 16:02:20 Gynecologic examination 83406281 Z01.419 Take Calcium with Vitamin D 12-1500mg daily. Do monthly self breast exams. It is advised to get annual flu shot in the fall and she could obtain at [facility] or [facility] care clinic. If you haven't received the Tdap vaccine in the last 10 years you should obtain one as well. Have mammogram yearly, bone density every 2-3 years and colonoscop y every 5-10 years depending on findings and history. Engage in daily exercise of low impact aerobic exercise 45-60 minutes 4-5 times weekly. Avoid tobacco and illicit drugs as well as using moderation with alcohol intake less than 1-2 8 oz beverages daily. This lifestyle behavior pattern will lead to less health conditions and longer life span. If BMI greater than 25 weight watchers or dietary consult advised. Questions have been answered. Patient appears to understand instructio ns, but if you have any further questions call or respond to this email Pap/hpv sent STD Screen declined Genetic Screen discussed Colon Screen PCP Dexa Screen PCP Routine Labs PCPMammo completed 2022 wnl Genital li burgos sclerosus [id number] L90.0 Continue current regimen with olive oil and prn use of mycolog.Ad dition of vaginal estrogen has GREATLY subsided her LS sx's even better than the mycolog.Oleg byrne is using daily olive oil & prn of mycolog as well.She will begin use of 2-3x/night s vag estrogen for LS & dyspareuni a.Previous ly counseled on this product & use/ risks/bene fits.RTO x 2mos med check [id number] Patricia Benitez [place] [facility] [address],[facility] [place] [address] 09/13/2023 16:44:16 09/21/2023 14:59:11 Lesion of vulva [id number] N90.89 Will treat for yeast/HSV until swabs return.Res tart steroid ointment and continue to use VCG's as she has been doing.Ice packs to area if needed. Counseled on medication R/B's, Most common side effects, & use. All questions were answered to patient satisfacti on. Time spent in visit is a total of 25 mins with at least 50% of visit consisting of counseling and review of plan of care. Sexually t ransmitted infectious disease [id number] A64 Question if HSV is a part of this issueLesio ns look raw and similar to open blisters all around apex of vulva/clit oral skin. [id number] RUDDY RENTERIA MD [facility] [address] [address] 12/26/2023 16:33:15 12/27/2023 09:51:17 Genital lichen sclerosus [id number] L90.0 - confirmed on biopsy 1 year ago- used clobetasol cream and valtrex without relief- has tried estradiol in the past however unsure of effects- will trial estradiol cream and send referral to [facility] Health Concerns Section Related Observation LastModified by Organization Detai ls LastModified Time None Recorded Concern Status LastModified by Organization Details LastModified Time None Recorded Advance Directives Directive None Recorded Payers Insurance Date Sequence Insurance Name Policy Number Policy Berkowitz Covered Member ID Berkowitz Member ID Guarantor Name 12/23/[address] [facility] [id number] Suzi Aguirre [id number] Suzi Aguirre Notes Date Note Type Note Provider Name and Address Organization Details Recorded Time 09/10/2022 text/html ROS as noted in the HPI Here today for vulvar bx. Lolis aden, [facility] 09/10/2022 13:13:38 10/11/2022 text/html ROS as noted in the HPI Here today for vulva check of LS. Patricia Benitez JOHNNY- [address], [place], [address], [facility] 10/11/2022 18:41:51 12/01/2022 text/html Annual GYNReport ed by Patient Patricia Benitez JOHNNY- [address], [place], [address], [facility] 12/01/2022 15:56:57 09/13/2023 text/html ROS as noted in the HPI Suzi is a 53yo postmenopausal female here today with concerns of painful vulvar lesions/erythema.Thi s has progressively been getting worse and is now so painful to wear clothing.She has Hx of well managed lichen's sclerosis and reports she has not changed anything in her routine expect taking a supplement Estroven OTC and wore some silk underwear. Not currently SA-monogamousNeg pain of abd/pelvis/flankNeg urinary sx'sNeg GI sx'sNeg N/V/F/C/DNeg Vag d/c, odor, irritation, itching Patricia Benitez JOHNNY- [address], [place], [address], [facility] 09/21/2023 13:33:50 12/26/2023 text/html ROS as noted in the HPI Patient presents for med check and reevaluation of lichen sclerosus. She was diagnosed about 1 year ago after vulvar biopsy demonstrated lichen sclerosus. She has tried clobetasol cream which relieves itching immediately after placement however then becomes increasingly irritated. She also used estradiol cream but is unsure of its effect on the itching. She was tested for HSV serology and was positive, however HSV swab was negative. She tried valtrex x3 months without relief. She reports that the skin changes have resolved by 80% however it is still present and bothersome to her. RUDDY RENTERIA MD [address], [place], [address], [facility] 12/26/2023 22:59:35 OBGyn Episode Ob Episode Information Episode Created Date Number of Fetuses Patient Bloodtype Patient rh Status Prepregnancy Weight lbs Domestic Partner Domestic Partner Phone Father Name Digital Account Executive Status 08/28/19 23 1 CLOSED Fetus Data First Name Last Name Admitted to NICU Weight (g) Sex Living Outcome Pediatric Complications Fetus ID Race Codes Race Delivery Type 2692.97 [id number] F Full Term [id number] Vaginal Delivery Yvon Calculation Initial Yvon Date Initial Exam Date Initial Exam Provider Initial Ultrasound Date Last Menstrual Period Date Ultra Sound Weeks Gestation 0 Eighteen To Twenty Week Yvon Update Ultra Sound Date Fundal Height At Umbil Quickening Date Ultra Sound Latest Weeks Gestation Final Yvon Confirmed By Final Yvon Confirmed Date Final Yvon Date Ultra Sound Latest Days Gestation 0 0 Menstrual History Last Menstrual Date Menses Monthly On Bcp Conception Prior Menses Frequency Hcg Plus Date Menarche Onset Age Delivery Information Delivery Date Delivery Type Labor Anesthesia Weeks Gestation Incision Type Labor Labor Length Hrs Delivered By Post Complications Tubal Sterilization Discharge Date Comments 199 5 38 Discharge Information Feeding Method Contraceptive Method Maternal HG B and HCT Levels
--- OUTSIDE RECORDS SUMMARY | 2025-02-21 00:27 | XMS_ITS | Clinical Summary ---
Author Organization [facility] Address [address] [place] [address] Care Team Providers Care Exterior Door Installer Name Role Phone Mike Chaudhary MD Primary Care Provider [phone] Source Comments [facility],non-owned Affiliates and Associated Physician Practices is amultiple site organization consisting of ambulatory clinics and hospital sitesin [place], [place], [place] and [place]. This disclosure is being madepursuant to the Care Everywhere program and may not contain all information available regarding this patient. Last updated 18.[facility] Allergies Active Allergy Reactions Criticality Noted Date Comments Erythromycin Unknown 01/08/2024 Sulfamethoxazole W-Trimethoprim Myalgias 08/29 Medications * Be aware that medications may not be up to date on this document. Alwaysverify current medications with the patient. ALBUTEROL IN Active Cholecalciferol (Vitamin D-[address]) 25 MCG (1000 UT) Take 1 (one) tablet by mouth Active ferrous sulfate 325 (65 FE) MG tablet Take 65 mg of elemental iron by mouth 3 (three) times a week Active fluticasone-otis meterol (Advair/Wixela) 100-50 MCG/ACT inhaler Inhale 1 (one) puff by mouth 2 times daily Active folic acid (Folvite) 1 MG tablet Take 1 (one) tablet by mouth once daily Active esomeprazole (NexIUM) 20 MG capsule Take 1 (one) capsule by mouth daily before breakfast Active triamcinolone acetonide (Kenalog) 0.1 % ointmentIndicat ions:Lichen sclerosus Please mix in a versa base. Use to vulvar skin twice a day for one month & then daily x one month & then every other day 30 g 1 4 Active Active Problems Problem Noted Date Diagnosed Date Asthma 01/08/2024 Nonobstructive atherosclerosis of coronary arter y 01/08/2024 Presence of gastric pacemaker 01/08/2024 Lichen sclerosus 09/22/2022 Gastroparesis 02/28/2020 Overview (01/08/2024): Added automatically from request for surgery [id number] Resolved Problems Problem Noted Date Diagnosed Date Resolved Date Moderate persistent asthma with exacerbation 8 01/22/2024 Overview (01/08/2024): Last Assessment & Plan: Asthma is worsening. The patient is experiencing [...] Triggers Flu Shot Pneumonia Vaccine Allergy medication Family History Medical History Relation Name Comments CAD (Coronary Artery Disease) Mother Diabetes - Type 2 Mother CAD (Coronary Artery Disease) Sister 1 Diabetes - Type 2 Sister 1 CAD (Coronary Artery Disease) Sister 2 Diabetes - Type 2 Sister 2 CAD (Coronary Artery Disease) Sister 3 None Known Sister 4 Relation Name Status Comments Maternal Grandfather Maternal Grandmother Mother Paternal Grandfather Paternal Grandmother Sister 1 Sister 2 Alive Sister 3 Alive Sister 4 Alive Social History Tobacco Use Types Packs/Day Years [...] on file Sexual Orientation Not on file Last Filed Vital Signs Vital Sign Reading Time Taken Comments Blood Pressure 122/76 01/08/2024 11:13 AM CDT Pulse 83 09/13/2016 3:28 PM CDT Temperature 37 C (98.6 F) 09/13/2016 3:28 PM CDT Respiratory Rate 16 09/13/2016 3:28 PM CDT Oxygen Saturation 98% 09/13/2016 3:28 PM CDT Inhaled Oxygen Concentration - - Weight 78.5 kg (173 lb) 01/08/2024 11:13 AM CDT Height 167.6 cm (5' 6) 01/08/2024 11:13 AM CDT Body Mass Index 27.92 01/08/2024 11:13 AM CDT Plan of Treatment Health Maintenance Due Date Last Done Comments COLOGUARD (AGES 45-75) - COLON CA SCREENING 1969 CT COLONOGRAPHY - COLON CA SCREENING 1969 FIT - COLON CA SCREENING 1969 FLEX SIG - COLON CA SCREENING 1969 HIV SCREENING 1984 HEPATITIS C SCREENING 02/27/1987 DTAP/TDAP/TD VACCINES (1 - Tdap) 1988 HEPATITIS B VACCINE (1 of 3 - 19+ 3-dose series) 1988 PNEUMOCOCCAL VACCINE 50+ (1 of 2 - PCV) 1988 PAP SMEAR 1990 ZOSTER VACCINE (1 of 2) 2019 SCREENING FOR DIABETES 01/08/2024 DEPRESSION SCREENING 05/01/2024 COVID-19 VACCINE (2 - season) 2024 08/01/2020 INFLUENZA VACCINE (#1) 2024 8, 01/27/2017, 02/09/2016 MAMMOGRAM 11/20/2025 11/21/2023, 10/30, 11/17/2022, Additional history exists COLON MONITORING 03/26/2029 03/26/2019 COLONOSCOPY - COLON CA SCREENING 03/26/2029 03/26/2019 Colorectal Cancer Screening 03/26/2029 HIB VACCINE Aged Out No longer eligi ble based on patient's age to complete this topic HPV VACCINE Aged Out No longer eligi ble based on patient's age to complete this topic MENINGOCOCCAL (Group B) VACCINE SHARED DECISION-MAKING Aged Out No longer eligible based on patient's age to complete this topic MENINGOCOCCAL GROUPS A/C/Y/W VACCINE Aged Out No longer eligible based on patient's age to complete this topic Insurance [place] [id number] Advance Directives Documents on File Type Date Recorded Patient Bibliographic Services Specialist Expl anation Adv Directive/Living Will/POA 09/12/2016 Adv Directive/Living Will/POA 09/12/2016 Care Teams Exterior Door Installer Relationship Specialty Start Date End Date Mike Chaudhary MD [facility] [place] [phone] PCP - General Family Medicine 01/02/24
[2025-02-21 06:20] VITALS: BP 145/81; PULSE 79; RESP 18; TEMP 36.4; O2SAT 95
[2025-02-21] MEDS: LACTATED RINGERS 1,000 ML 150 ML IV CONT (06:33)
--- NOTE | 2025-02-21 06:57 | WPDANESEPPF ---
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 Patient Data Age: 54 Gender: F Height: 1.57 m Weight: 77.4 kg Last Vital Signs Temp 97.6 F 02/21/25 06:20 Pulse 79 02/21/25 06:20 Resp 18 02/21/25 06:20 BP 145/81 H 02/21/25 06:20 Pulse Ox 95 02/21/25 06:20 O2 Del Method Room Air 02/21/25 06:20 Allergies Allergy/AdvReac Type Severity Reaction Status Date / Time erythromycin base Allergy Severe Difficulty Verified 02/21/25 06:16 Breathing Sulfa (Sulfonamide Allergy Rash Verified 02/21/25 06:16 Antibiotics) Home Medications ?Medication ?Instructions ?Recorded ?Confirmed ?Type albuterol sulfate 90 mcg/actuation 1 puff inhalation Q4H PRN 06/05/19 02/12/25 History aerosol inhaler (ProAir HFA) Shortness Of Breath fluticasone propionate 45 2 puff inhalation BID 06/05/19 02/21/25 History mcg-salmeterol 21 mcg/actuation HFA inhaler (Advair HFA) esomeprazole magnesium 20 mg 20 mg PO DAILY #90 caps 05/29/24 02/21/25 Rx capsule,delayed release ascorbic acid (vitamin C) 500 mg 500 mg PO DAILY 02/12/25 02/21/25 History tablet (C-500) aspirin 81 mg tablet,delayed 81 mg PO DAILY 02/12/25 02/21/25 History release (Adult Aspirin Regimen) calcium no.26 167 mg-magnesium cap PO DAILY 02/12/25 History no.15 83 mg-zinc 5 mg capsule calcium no.26 167 mg-magnesium cap PO 02/12/25 History no.15 83 mg-zinc 5 mg capsule (Zknbyxk-Nwcytcbtg-Ctco Complex) ferrous sulfate 325 mg (65 mg 325 mg PO DAILY 02/12/25 02/21/25 History iron) tablet (Feosol) omega 0-asf-jtq-fish oil 1,000 mg 1 cap PO DAILY 02/12/25 02/21/25 History (120 mg-180 mg) capsule (Fish Oil) pyridoxine (vitamin B6) 100 mg 100 mg PO DAILY 02/12/25 02/21/25 History tablet vitamin B complex (B-Complex 1 tablet PO .q48 02/12/25 02/21/25 History tablet) vitamin B complex (Vitamins B 1 tablet PO .q48 02/12/25 02/21/25 History Complex tablet) Patient hx anesthesia problems: none Family hx anesthesia problems: none Results Review: All pre-operative results and documents have been reviewed as part of the pre-operative evaluation. [facility] Past Medical History Medical History Hiatal hernia Gastroparesis URI (upper respiratory infection) Nausea Helicobacter positive gastritis Colon cancer screening Nausea & vomiting Salgado esophagus GERD (gastroesophageal reflux disease) Social History Social History Years smoked: 30 Smoking status: Former smoker Tobacco type: cigarettes Additional smoking assessment comments: Uses a Pinch hitter for the marijuana Alcohol intake: never Substance use: current Substance use type: marijuana Other substance usage details: Edibles Last use: 02/11/2025 Living arrangements: with family Occupation/Education: occupation Spiritual care concerns: No Anes - Eval Final PreProcedure Day of Procedure 02/21/25 06:57 Patient weight: obese Lungs: normal air movement Airway: Mallampati scale class II Neurological: alert and oriented Last oral intake: >/= 8 hours ASA classification: III Emergent: no Anesthetic plan: proceed Anesthesia type and monitoring: general GIVS and standard monitoring Results Review: All pre-operative results and documents have been reviewed as part of the pre-operative evaluation. BMI 31, asthma (stable), exsmoker quit 2006. cannabis nightly. Pt has gastric stimulator since 2019 and it is working well, no GERD/reflux since placement. Hx of Barretts esophagus. Informed Consent: The patient's anesthetic plan and its attendant risks and benefits were discussed with the patient/family/POA. Questions were solicited and answers provided to the satisfaction of the patient/family/POA.
--- NOTE | 2025-02-21 07:31 | PM.HPGS ---
History of Present Illness History of Present Illness Consent: Risks, benefits, and alternatives have been discussed and questions answered. Patient agrees to proceed with procedure. 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, last egd 3 years ago, also gastroparesis doing well with gastric stimulator Review of Systems Review of Systems: All systems reviewed & are unremarkable except as noted in HPI and below PMFSH Past Medical History Medical History Hiatal hernia Gastroparesis URI (upper respiratory infection) Nausea Helicobacter positive gastritis Colon cancer screening Nausea & vomiting Leggett esophagus GERD (gastroesophageal reflux disease) Social History Social History Years smoked: 30 Smoking status: Former smoker Tobacco type: cigarettes Additional smoking assessment comments: Uses a Pinch hitter for the marijuana Alcohol intake: never Substance use: current Substance use type: marijuana Other substance usage details: Edibles Last use: 02/11/2025 Living arrangements: with family Occupation/Education: occupation Spiritual care concerns: No Meds Home Medications and Allergies Home Medications ?Medication ?Instructions ?Recorded ?Confirmed ?Type albuterol sulfate 90 mcg/actuation 1 puff inhalation Q4H PRN 06/05/19 02/12/25 History aerosol inhaler (ProAir HFA) Shortness Of Breath fluticasone propionate 45 2 puff inhalation BID 06/05/19 02/21/25 History mcg-salmeterol 21 mcg/actuation HFA inhaler (Advair HFA) esomeprazole magnesium 20 mg 20 mg PO DAILY #90 caps 05/29/24 02/21/25 Rx capsule,delayed release ascorbic acid (vitamin C) 500 mg 500 mg PO DAILY 02/12/25 02/21/25 History tablet (C-500) aspirin 81 mg tablet,delayed 81 mg PO DAILY 02/12/25 02/21/25 History release (Adult Aspirin Regimen) calcium no.26 167 mg-magnesium cap PO DAILY 02/12/25 History no.15 83 mg-zinc 5 mg capsule calcium no.26 167 mg-magnesium cap PO 02/12/25 History no.15 83 mg-zinc 5 mg capsule (Nfnunae-Pkfosalts-Pswu Complex) ferrous sulfate 325 mg (65 mg 325 mg PO DAILY 02/12/25 02/21/25 History iron) tablet (Feosol) omega 3-pik-nwf-fish oil 1,000 mg 1 cap PO DAILY 02/12/25 02/21/25 History (120 mg-180 mg) capsule (Fish Oil) pyridoxine (vitamin B6) 100 mg 100 mg PO DAILY 02/12/25 02/21/25 History tablet vitamin B complex (B-Complex 1 tablet PO .q48 02/12/25 02/21/25 History tablet) vitamin B complex (Vitamins B 1 tablet PO .q48 02/12/25 02/21/25 History Complex tablet) Allergies Allergy/AdvReac Type Severity Reaction Status Date / Time erythromycin base Allergy Severe Difficulty Verified 02/21/25 06:16 Breathing Sulfa (Sulfonamide Allergy Rash Verified 02/21/25 06:16 Antibiotics) Vital Signs Vital Signs - 24 hr 02/21/25 06:20 Temperature 97.6 F Pulse Rate 79 Respiratory Rate 18 Blood Pressure 145/81 H Pulse Oximetry 95 Oxygen Delivery Room Air Exam Const: General: comfortable and no acute distress HENMT: Face/Nose/Sinus: Normal nares present Eyes: General: appearance normal, both eyes and all related structures Neck: Neck: no JVD Resp: Auscultation: clear to auscultation bilaterally Cardio: Rate: regular rate Rhythm: regular rhythm GI: Inspection: non-distended GI Palp: Yes Soft to palpation Skin: General skin exam: normal color Extrem: General: normal to inspection Psych: Mental Status: mental status grossly normal Assessment and Plan Assessment and plan (1) 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
--- NOTE | 2025-02-21 07:40 | S_PTH ---
PATIENT: Suzi Aguirre LOC: [facility] Church#:[id number] AGE/SX: 54/F ROOM: RE02/21/[address]: Vasu Andrews MD : 1970 BED: DIS: 02/21/2025 SPEC #: [id number] RECD: 02/21/25 10:22 STATUS: AYAN MARTINEZ #: [id number] ANIBAL: 02/21/25 07:[address]: Vasu Andrews DEPT: [facility] Surgical RECD BY: Julia Chau ENTERED: 02/21/25 10:23 SP TYPE: Surgical OTHR DR: Mike ChaudharyMD Tissues: A - Gastric Biopsy B - Esophageal Biopsy Procedures: Hematoxylin and Eosin Stain Gross and Microscopic Level 4 H.Pylori
[2025-02-21 07:47] VITALS: BP 93/47; PULSE 70; RESP 18; O2SAT 93
[2025-02-21 07:57] VITALS: BP 112/57; PULSE 62; RESP 15; O2SAT 95
[2025-02-21 08:07] VITALS: BP 109/88; PULSE 64; RESP 12; O2SAT 100
== END 2025-02-21 08:16 | disposition home or self-care (01) ==
PROVIDERS: PCP Family Medicine; Referring Provider Nurse Practitioner; Visit Provider Internal Medicine Gastroenterology
PROC: 0DJ08ZZ Inspection of Upper Intestinal Tract, Via Natural or Artificial Opening Endoscopic (ICD-10-PCS; CPT 43239; principal; 2025-02-21 07:30)
DX: K22.70 Barrett's esophagus without dysplasia (principal); K29.50 Unspecified chronic gastritis without bleeding; K44.9 Diaphragmatic hernia without obstruction or gangrene; K21.9 Gastro-esophageal reflux disease without esophagitis; J45.909 Unspecified asthma, uncomplicated; F12.90 Cannabis use, unspecified, uncomplicated; E66.9 Obesity, unspecified; Z68.31 Body mass index [BMI] 31.0-31.9, adult; Z79.51 Long term (current) use of inhaled steroids; Z79.82 Long term (current) use of aspirin; Z96.82 Presence of neurostimulator; Z87.891 Personal history of nicotine dependence
CPT/HCPCS: 43239; 88305; 88342; J2003; J2704; J7120